=== PATIENT | male | born 1990 | race Caucasian/White ===

== ENCOUNTER 2017-02-05 14:24 | Emergency (ER) | payer OTHER ==
[~2017-02-05] VITALS: Wt 65.5 kg
[2017-02-05 15:23] LABS: ADD UMIC NO; UR AMORPHOUS CRYSTAL FEW /HPF (NONE SEEN); UR ASCORBIC ACID NEGATIVE (NEGATIVE); UR BILIRUBIN (Dip) NEGATIVE (NEGATIVE); UR BLOOD (Dip) NEGATIVE (NEGATIVE); UR CLARITY SLIGHTLY CLOUDY (CLEAR); UR COLOR YELLOW (YELLOW); UR GLUCOSE (Dip) NEGATIVE (NEGATIVE); UR KETONES (Dip) NEGATIVE (NEGATIVE); UR LEUKOCYTE ESTERASE (Dip) NEGATIVE Leu/ul (NEGATIVE); UR MUCUS FEW /HPF (NONE SEEN); UR NITRITE (Dip) NEGATIVE (NEGATIVE); UR RBC 2 /HPF (0-5); UR SPECIFIC GRAVITY (Dip) 1.021 (1.003-1.030); UR TOTAL PROTEIN (Dip) NEGATIVE (NEGATIVE); UR UROBILINOGEN (Dip) NEGATIVE (NEGATIVE)
--- NOTE | 2017-02-05 16:14 | RADRPT ---
PROCEDURE: US Scrotal CLINICAL INDICATION: Pain TECHNIQUE: Images were taken during real time interrogation of the scrotum. Color Doppler was also performed. COMPARISON: None FINDINGS: Right Testicle: Is normal in size measuring 4.9 x 2.3 x 3.3 No mass is identified. The echotexture is normal. There is normal vascular flow on color Doppler. Small hydrocele. No varicocele. Left testicle: Is normal in size measuring 5.0 x 2.3 x 3.5 No mass is identified and The echotexture appears normal. There is normal vascular flow on color Doppler. Small hydrocele. No varicocele. Right Epidydemus: Appears normal. Left Epedidymus: Appears normal. IMPRESSION: Small hydroceles bilaterally. Physician Pj Date Time Electronically viewed and signed by Physician Pj on 02/05/2017 16:13 CT/
[2017-02-05] MEDS ORDERED: DOXY100T20 PO (16:18)
[2017-02-05] MEDS ORDERED: IBUP-1542 PO (16:18)
--- NOTE | 2017-02-05 16:21 | ERD ---
ER Documentation Chief Complaint Chief Complaint r. testicle pain, denies trauma HPI 26-year-old male complains of pain in his right testicle starting this morning. Started while sleeping. He felt some swelling and pain which is improving throughout the day. Denies any penile discharge or dysuria. Denies any fevers. Denies any concern for STDs or known exposures or new sexual partners. ROS All systems reviewed and are negative except as per history of present illness. Medications Home Meds Active Scripts Ibuprofen* (Motrin*) 600 Mg Tab, 600 MG PO Q6, #20 TAB Prov:AFIA SOLORZANO MD 02/05/17 Doxycycline Hyclate* (Doxycycline Hyclate*) 100 Mg Tablet.dr, 100 MG PO BID for 10 Days, TAB Prov:AFIA SOLORZANO MD 02/05/17 Physical Exam Vitals Vital Signs Date Time Temp Pulse Resp B/P Pulse Ox O2 Delivery O2 Flow Rate FiO2 02/05/17 14:26 98.6 76 20 119/96 97 Physical Exam Const: [] Alert, [id number]. Head: Atraumatic Eyes: Normal Conjunctiva ENT: Normal External Ears, Nose and Mouth. Neck: Full range of motion..~ No meningismus. Resp: Clear to auscultation bilaterally Cardio: Regular rate and rhythm, no murmurs Abd: Soft, non tender, non distended. Normal bowel sounds Normal exam-some tenderness above the right testicle without significant swelling and no appreciable testicular swelling. Positive cremasteric reflex. No penile discharge. No hernias appreciated. Skin: No petechiae or rashes Back: No midline or flank tenderness Ext: No cyanosis, or edema Neur: Awake and alert Psych: Normal Mood and Affect Results 24 hrs Laboratory Tests Test 02/05/17 15:00 Urine Color YELLOW Urine Clarity SLIGHTLY CLOUDY Urine pH 7.0 Urine Specific [place] 1.021 Urine Ketones NEGATIVEmg/dL Urine Nitrite NEGATIVEmg/dL Urine Bilirubin NEGATIVEmg/dL Urine Urobilinogen NEGATIVEmg/dL Urine Leukocyte Esterase NEGATIVELeu/ul Urine Microscopic RBC 2/HPF Urine Microscopic WBC 0/HPF Urine Amorphous Crystals FEW/HPF Urine Mucus FEW/HPF Urine Hemoglobin NEGATIVEmg/dL Urine Glucose NEGATIVEmg/dL Urine Total Protein NEGATIVEmg/dl Procedures/MDM Her ultrasound read as normal by the radiologist. Urine is negative and sent for gonorrhea chlamydia. Patient presents with right testicle pain which appears to be improving. May be due to minor trauma or epididymitis which is early. There is no current signs or symptoms of testicular torsion or appendicitis or current causes of presenting complaints. Patient was treated empirically with doxycycline ibuprofen, and neurology follow-up. Patient is advised to return immediately for worsening pain and swelling otherwise with primary doctor urology this week. Departure Diagnosis: Primary Impression: Pain in testicle Condition: Stable Patient Instructions: Testicular Pain, Unclear Cause Referrals: LIO MONGE MD, BRIAN E LEFF, RICHARD G. MD Additional Instructions: Normal and ultrasound shows no acute abnormalities. May be minor trauma. Recommend further observation and treatment. STD testing pending usually returns within 1 week and will be called with abnormal results. Follow-up with urology this week for further evaluation and treatment. Return immediately for worsening pain, swelling, new symptoms were AFIA SOLORZANO MD Feb 05, 2017 16:21
== END 2017-02-05 16:32 | disposition home or self-care (01) ==
LOC: FTE 14:24
DX: N50.811 Right testicular pain (principal)
CPT/HCPCS: 76870; 81001; 81003; 87591